=== PATIENT | female | born 1940 | race Hispanic/Latino ===

== ENCOUNTER → 2018-03-24 | Outpatient (CLI) | payer OTHER ==
[~2018-03-24] MED LIST: CHOL200059 PO; CIPRO 0.3% OS; EVEN500C4 PO; EYE OS; FEXO180T94 PO; GADODIAMIDE 10 MMOL/20 ML ML IV ONE; HYDR12.54 PO; IRBE300T19 PO; METO25TA6 PO; PRED5DRO25 OS
== END | disposition home or self-care (01) ==
LOC: RAH 13:37
PROVIDERS: ATTEND Family Medicine
DX: R55 Syncope and collapse (principal)
CPT/HCPCS: 70549; A9579

== ENCOUNTER → 2018-08-06 | Outpatient (CLI) | payer OTHER ==
[~2018-08-06] VITALS: Ht 162.6 cm; Wt 73.5 kg
[~2018-08-06] MED LIST changes: -GADODIAMIDE 10 MMOL/20 ML ML IV ONE; +REGADENOSON 0.4 MG/5 ML PF SYG IVP SCH
== END | disposition home or self-care (01) ==
LOC: SHCH 08:27
PROVIDERS: ATTEND Internal Medicine Cardiovascular Disease
DX: I10 Essential (primary) hypertension (principal); R55 Syncope and collapse
CPT/HCPCS: 78452; 93017; 96374; A9500 ×2; J2785

== ENCOUNTER → 2018-09-22 | Outpatient (CLI) | payer OTHER ==
[~2018-09-22] MED LIST changes: +BENADRYL PO; +PREVAGEN PO; -REGADENOSON 0.4 MG/5 ML PF SYG IVP SCH; +RIVA20TA PO
--- NOTE | 2018-09-22 10:00 | NUR ---
U/S GD RT THYROID BX PROCEDURE PERFORMED BY DR Bethany CORREA. DR AVILA PRESENT FOR SPECIMEN CLARIFICATION. PUNCTURE SITE RT NECK AND PATIENT TOLERATED PROCEDURE WELL. SPECIMEN X 5 COLLECTED AND SENT TO LAB. END OF PROCEDURE AT 0930. BIOPSY NEEDLE REMOVED AND DRESSING APPLIED. NO BLEEDING NOTED. DISCHARGE INSTRUCTIONS GIVEN TO PATIENT AND VERBALIZED UNDERSTANDING. DISCHARGED VIA AMBULATION AT 1000. AAO X3 WITH NO C/O PAIN.
== END | disposition home or self-care (01) ==
LOC: RAH 07:36
PROVIDERS: ATTEND Family Medicine
DX: E04.1 Nontoxic single thyroid nodule (principal)
CPT/HCPCS: 10005; 76942; 88108; 88305

== ENCOUNTER 2018-10-19 10:10 | Observation (INO) | payer OTHER ==
[~2018-10-19] VITALS: Ht 154.9 cm; Wt 73.9 kg
[~2018-10-19 10:10] MED LIST changes: -BENADRYL PO; -PREVAGEN PO; -RIVA20TA PO
[2018-10-19 10:42] LABS: BASOPHILS % (AUTO) 1.2 % (0.0-5.0); EOSINOPHILS % (AUTO) 1.1 % (0.0-8.0); HEMATOCRIT 42.6 % (36-48); LYMPHOCYTES % (AUTO) 19.4 % (21.0-51.0); MEAN CORPUSCULAR HEMOGLOBIN 29.7 pg (27.0-33.0); MEAN CORPUSCULAR HGB CONC 34.2 g/dL (32.0-36.0); MEAN CORPUSCULAR VOLUME 86.7 fL (79-99); MONOCYTES % (AUTO) 8.9 % (3.0-13.0); NEUTROPHILS % (AUTO) 69.4 % (40.0-77.0); PLATELET COUNT (AUTO) 231 K/uL (130-400); RED BLOOD CELL COUNT(AUTO) 4.91 MIL/uL (4.00-5.50); RED CELL DISTRIBUTION WIDTH 13.8 % (11.0-15.5); WHITE BLOOD COUNT (AUTO) 6.5 K/uL (4.8-10.8)
[2018-10-19 10:53] LABS: CREATININE 0.9 mg/dL (0.5-1.5); POTASSIUM 3.4 mmol/L (3.5-5.1)
[2018-10-19 10:57] LABS: ALBUMIN 3.6 g/dL (3.5-5.0); BILIRUBIN,TOTAL 0.8 mg/dL (0.2-1.0); TOTAL PROTEIN, SERUM 6.6 g/dL (6.0-8.3)
[2018-10-19 11:52] LABS: BILIRUBIN,URINE Negative (NEGATIVE); COLOR,URINE Yellow (YELLOW); GLUCOSE, URINE (UA) Negative (NEGATIVE); KETONES,URINE Trace mg/dL (NEGATIVE); LEUKOCYTE ESTERASE ,URINE Negative (NEGATIVE); NITRATE,URINE Negative (NEGATIVE); OCCULT BLOOD,URINE Small (NEGATIVE); PROTEIN,URINE Negative (NEGATIVE); UROBILINOGEN,URINE 0.2 mg/dL (0.2-1.0)
[2018-10-19 11:57] LABS: APPEARANCE,URINE SLIGHTLY CLOUDY (CLEAR)
[2018-10-19 12:02] LABS: AMORPHOUS SEDIMENT,UR Moderate /LPF (None Seen); BACTERIA,URINE None Seen /HPF (None Seen); SQUAMOUS EPITHELIAL CELL,UR 0-2 /HPF (0-2); WBC,URINE None Seen /HPF (0-1)
[2018-10-19] MEDS ORDERED: MAG HYDROX/AL HYDROX/SIMETH ES 30 ML SUSP UDCUP ONE (13:56)
[2018-10-19] MEDS ORDERED: LIDOCAINE HCL 2% VISCOUS 15 ML UDCUP ONE (13:56)
[2018-10-19] MEDS ORDERED: SODIUM CHLORIDE 0.9% 1000ML 1,000 ML IV SCH (14:30)
--- NOTE | 2018-10-19 16:15 | NUR ---
RECEIVED TO ROOM 204 VIA STRETCHER ACCOMPANIED BY CATINA CORONA RN. PT. AAOX3, RESP.'S EVEN AND UNLABORED. DENIES ANY C/O SOB, DENIES ANY CURRENT PAIN. ORIENTED TO ROOM AND SURROUNDINGS. COMPLETE ASSESSMENT DONE. CALL LIGHT WITHIN REACH. BED LOW, SIDE RAILS UP X2.
[2018-10-19 16:18] VITALS: BP 126/87
[2018-10-19] MEDS ORDERED: RIVA20TA PO (16:54)
[2018-10-19] MEDS ORDERED: BENADRYL PO (16:54)
[2018-10-19] MEDS ORDERED: PREVAGEN PO (16:55)
[2018-10-19 18:28] LABS: CREATINE KINASE, TOTAL 70 U/L (21-232); MYOGLOBIN 46 ng/mL (10-92); TROPONIN I < 0.04 ng/mL (0.00-0.06)
[2018-10-19 19:30] VITALS: BP 148/68
[2018-10-19 23:52] VITALS: BP 117/72
[2018-10-20 00:39] LABS: CREATINE KINASE, TOTAL 63 U/L (21-232); MYOGLOBIN 46 ng/mL (10-92); TROPONIN I < 0.04 ng/mL (0.00-0.06)
[2018-10-20 03:54] VITALS: BP 129/74
[2018-10-20] MEDS ORDERED: PANTOPRAZOLE SODIUM 40 MG TABLET.DR PO ONE (06:05)
--- NOTE | 2018-10-20 06:30 | NUR ---
Pt. denies any chestpain,resting well for the most part of the shift,NS @50ml infusing well to left AC.Daughter to bedside .
[2018-10-20 07:00] VITALS: BP 132/75
[2018-10-20] MEDS ORDERED: PANTOPRAZOLE SODIUM 40 MG TABLET.DR PO SCH (07:30)
[2018-10-20] MEDS ORDERED: ENOXAPARIN SODIUM 40 MG/0.4 ML SYRINGE SQ SCH (09:00)
[2018-10-20 11:00] VITALS: BP 137/91
--- NOTE | 2018-10-20 13:50 | NUR ---
DISCHARGE INSTRUCTIONS GIVEN TO PATIENT AND SON ALL QUESTIONS ANSWERED, PIV REMOVED, CATH TIP INTACT, TELE PACK REMOVED. ALL BELONGINGS GATHERED, AMBULATED DOWN STAIRS TO ACCOMPANIES BY ME AND SON TO VEHICLE.
[2018-10-20] MEDS ORDERED: RIVAROXABAN 20 MG TABLET PO SCH (21:00)
== END 2018-10-20 14:00 | disposition home or self-care (01) ==
LOC: EDH 10:10 → EDHIP 13:40 → 2AH 16:02
PROVIDERS: ADMIT Internal Medicine; ATTEND Internal Medicine
DX: I48.0 Paroxysmal atrial fibrillation (principal); I10 Essential (primary) hypertension; R55 Syncope and collapse; M19.90 Unspecified osteoarthritis, unspecified site; Z90.710 Acquired absence of both cervix and uterus; Z79.01 Long term (current) use of anticoagulants
CPT/HCPCS: 36415 ×2; 71045; 80053; 81001; 82550 ×2; 83874 ×2; 84484 ×3; 85025; 87880; 93005 ×3; 96360; 96361; 96372; 99284; G0378 ×24; J1650; J7030

== ENCOUNTER → 2019-09-09 | Outpatient (CLI) | payer OTHER ==
[~2019-09-09] MED LIST changes: +BENADRYL PO; -CIPRO 0.3% OS; -EYE OS; +IRBE300T18 PO; -IRBE300T19 PO; -METO25TA6 PO; -PRED5DRO25 OS; +PREVAGEN PO; +RIVA20TA PO
== END | disposition home or self-care (01) ==
LOC: SHCH 14:55
PROVIDERS: ATTEND Internal Medicine Cardiovascular Disease
DX: I87.2 Venous insufficiency (chronic) (peripheral) (principal)
CPT/HCPCS: 93970

== ENCOUNTER → 2019-12-23 | Outpatient (CLI) | payer OTHER ==
[~2019-12-23] MED LIST changes: +REGADENOSON 0.4 MG/5 ML PF SYG IVP SCH
== END | disposition home or self-care (01) ==
LOC: SHCH 08:59
PROVIDERS: ATTEND Internal Medicine Cardiovascular Disease
DX: R07.89 Other chest pain (principal)
CPT/HCPCS: 78452; 93017; 96374; A9500 ×2; J2785

== ENCOUNTER → 2021-07-17 | Outpatient (CLI) | payer OTHER ==
[~2021-07-17] MED LIST changes: -REGADENOSON 0.4 MG/5 ML PF SYG IVP SCH
== END | disposition home or self-care (01) ==
LOC: SHCH 13:55
PROVIDERS: ATTEND Internal Medicine Cardiovascular Disease
DX: I87.2 Venous insufficiency (chronic) (peripheral) (principal)
CPT/HCPCS: 93970

== ENCOUNTER → 2021-08-26 | Outpatient (CLI) | payer OTHER | END | disposition home or self-care (01) | LOC: SHCH 14:17 | PROVIDERS: ATTEND Internal Medicine Cardiovascular Disease | DX: I51.7 Cardiomegaly (principal) | CPT/HCPCS: 93306 ==

== ENCOUNTER → 2022-08-27 | Outpatient (CLI) | payer OTHER | END | disposition home or self-care (01) | LOC: SHCH 13:54 | PROVIDERS: ATTEND Internal Medicine Cardiovascular Disease | DX: I87.2 Venous insufficiency (chronic) (peripheral) (principal) | CPT/HCPCS: 93970 ==

== ENCOUNTER → 2023-11-25 | Outpatient (CLI) | payer OTHER ==
[~2023-11-25] MED LIST changes: -IRBE300T18 PO; +IRBE300T26 PO
== END | disposition home or self-care (01) ==
LOC: SHCH 09:21
PROVIDERS: ATTEND Internal Medicine Cardiovascular Disease
DX: I08.8 Other rheumatic multiple valve diseases (principal); I87.2 Venous insufficiency (chronic) (peripheral); I48.0 Paroxysmal atrial fibrillation; I10 Essential (primary) hypertension; I87.1 Compression of vein; I73.9 Peripheral vascular disease, unspecified
CPT/HCPCS: 93306; 93925; 93970